=== PATIENT | female | born 1980 | race Hispanic/Latino ===

== ENCOUNTER 2023-08-22 19:45 | Emergency (ER) | payer OTHER ==
[~2023-08-22] VITALS: Ht 157.5 cm; Wt 82.6 kg
[2023-08-22] MEDS ORDERED: CEFTRIAXONE 1G VIAL IM ONE (23:00)
[2023-08-22] MEDS ORDERED: AMOX-426 PO (23:03)
[2023-08-23 00:20] VITALS: BP 136/79; PULSE 80; RESP 18; O2SAT 98
[2023-08-23] MEDS ORDERED: KETOROLAC 30MG VIAL (30MG/ML) ONE (00:20)
[2023-08-23] MEDS ORDERED: KETOROLAC 30MG VIAL (30MG/ML) IM ONE (00:30)
== END 2023-08-23 00:46 | disposition home or self-care (01) ==
LOC: EDH 19:45
DX: H66.92 Otitis media, unspecified, left ear (principal); R09.81 Nasal congestion
CPT/HCPCS: 99284; 96372 ×2; J0696; J1885